=== PATIENT | female | born 1970 | race Caucasian/White ===

== ENCOUNTER → 2017-05-17 | Outpatient (CLI) | payer BC ==
--- NOTE | 2017-05-18 11:47 | MAM ---
EXAM DESCRIPTION: 3D Screening BILATERAL : Digital Mammography. CLINICAL HISTORY: 47 years Female SCREENING . No complaints. Mother with breast cancer. Premenopausal. No HRT. COMPARISON: 2-D digital screening bilateral study 04/15/2013. No prior reports available. TECHNIQUE: Bilateral CC and MLO projection full-field images, 3-D tomosynthesis digital mammographic technique. Also bilateral synthesized CC/ MLO full-field images. CAD not utilized. FINDINGS: The breast parenchymal density pattern is: Scattered areas of fibroglandular density. No skin thickening or nipple retraction bilateral solitary microcalcifications. Bilateral axillary lymph nodes. Intramammary posterior lymph node left breast. No focal, stellate mass or density, focal asymmetry , and no suspicious microcalcifications bilaterally. Stable mammograms compared to prior study, taking into account differences in mammographic technique IMPRESSION: BI-RADS CATEGORY: 2 - BENIGN FINDINGS. FOLLOW UP: Routine digital bilateral screening, one year interval from April 2017. Written communication explaining the IMPRESSION and follow-up, will be mailed to the patient and referring health care provider. According to the [employer], yearly mammograms are recommended starting at age 40 and continuing as long as a woman is in good health. Any breast change noted on a breast self-exam should be reported promptly to the patient's healthcare provider. Breast MRI is recommended for women with an approximately 20-25% or greater lifetime risk of breast cancer, including women with a strong family history of breast or ovarian cancer and women who have been treated for Hodgkin's disease. A negative mammographic report should not delay tissue diagnosis in patients with significant clinical history or physical findings. Extremely dense breast tissue limits the sensitivity of digital mammography. Electronically signed by: Leon Fontenot MD 05/18/2017 11:46 AM [facility]
== END ==
LOC: MAMMO 08:26
PROVIDERS: ATTEND Family Medicine
DX: Z12.31 Encounter for screening mammogram for malignant neoplasm of breast (principal)
CPT/HCPCS: 77063; G0202

== ENCOUNTER → 2018-04-18 | Outpatient (CLI) | payer BC, OTHER ==
--- NOTE | 2018-04-18 12:35 | CT ---
EXAM DESCRIPTION: Chest w/Contrast : Computed Tomography. CLINICAL HISTORY: CHEST PAIN COMPARISON: Chest radiograph 07/10/2017. TECHNIQUE: Spiral-axial scans at 5 x 5 mm intervals through the lungs and thorax with IV contrast. 2.5 x 5 mm lung algorithm axial reconstructions. Coronal and sagittal 2.0 Mm reconstructions. No adverse reactions. Total Exam DLP: 394.76 mGy-cm. This exam was performed according to our departmental dose-optimization program which includes automated exposure control, adjustment of the mA and/or kV according to patient size and/or use of iterative reconstruction technique; to reduce radiation dose to as low as reasonably achievable (ALARA). Pulmonary nodule measurements under 10 mm are given as mean value of 3 axes diameters. FINDINGS: Lungs and airways: Bilaterally, small subpleural densities less than 4 mm in diameter are seen. No abnormal nodules infiltrates. No masses. Lungs are well-inflated. Pleural spaces: No significant pleural thickening, no pleural effusion or pneumothorax. Mediastinum and Anne-Marie: No significant findings. Prominent anterior, right lateral epicardial fat pad abutting the base of the right middle lobe. Great vessels and Heart: Unremarkable. Soft tissues of neck base, axillae, and chest wall: Right lobe of thyroid gland is larger than the left. Inferior posterior nonenhancing nodule at the level of the isthmus measuring 1 sq cm. Less likely to represent a parathyroid mass. Upper poles are not completely visualized. Focal asymmetry inferior to the right nipple in the right breast also seen on digital mammograms and stable since March 2013. Upper abdomen: Included peritoneal cavity unremarkable. Included spleen normal size and density. Minimal enlargement of the left adrenal gland, 1.5 x 1.5 cm with Hounsfield density +36.1. Right adrenal gland is unremarkable. Gallbladder and pancreas partially visualized. Osseous structures: Minimal spondylosis upper thoracic spine. Other osseous structures are unremarkable. IMPRESSION: 1. Bilateral lung granados are clear with no abnormal nodules masses or infiltrates. No pleural effusion or pneumothorax bilaterally. Small subclinical nodules and densities bilaterally. [facility] Best Practice recommendations is no CT follow-up is recommended. Please see below 2017 Fleischner Society guidelines for imaging follow-up of pulmonary nodules.* 2. No thyroid or parathyroid imaging follow-up recommended unless patient symptomatic. 3. Questionable mass in the left adrenal gland. If adrenal gland pathology is suspected, consider triple phase CT adrenal non-contrast and contrast washout protocol scan. 2017 Fleischner Society Recommendations for Single Solid Lung Nodule Follow-Up based on size (average of long- and short-axis diameters) <6 mm Low-Risk Patient: No routine follow-up Electronically signed by: Leon Fontenot MD 04/18/2018 12:34 PM CDT
== END ==
LOC: CT 08:35
PROVIDERS: ATTEND Family Medicine
DX: R07.2 Precordial pain (principal)

== ENCOUNTER → 2019-04-15 | Outpatient (CLI) | payer BC ==
--- NOTE | 2019-04-16 20:03 | MAM ---
EXAM DESCRIPTION: 3D Screening BILATERAL : Digital Mammography. CLINICAL HISTORY: 49 years Female ANNUAL SCREENING . No complaints. No personal history of breast cancer. Mother with breast cancer at age 50. Menarche age 11. Childbirth. Postmenopausal less than 2 years. No HRT. Lifetime risk of developing breast cancer (Tyrer-Cuzick model)(%): 16.8. COMPARISON: Bilateral screening digital breast tomosynthesis 20 April 2017.. TECHNIQUE: Bilateral CC and MLO projection full-field images, digital tomosynthesis mammographic technique. Bilateral digital 2-D full-field MLO images. CAD not available for tomosynthesis or 2-D images. FINDINGS: The breast parenchymal density pattern is: Almost entirely fatty. No skin thickening or nipple retraction. Bilateral solitary microcalcifications. Bilateral axillary lymph nodes. Focal asymmetry of fibroglandular tissues in the right nipple has decreased in size since the prior study. Bilateral fibroglandular tissues are decreasing since the prior study with increasing fatty replacement. No new focal, stellate mass or density, focal asymmetry , and no suspicious microcalcifications bilaterally. IMPRESSION: Benign exam. BIRAD CATEGORY: 2 BENIGN FINDINGS. RECOMMENDATIONS: FOLLOW UP: Routine digital bilateral mammographic screening, one year interval from March 2019. Written communication explaining the IMPRESSION and follow-up, will be mailed to the patient and referring health care provider. According to the [employer], yearly mammograms are recommended starting at age 40 and continuing as long as a woman is in good health. Any breast change noted on a breast self-exam should be reported promptly to the patient's healthcare provider. Breast MRI is recommended for women with an approximately 20-25% or greater lifetime risk of breast cancer, including women with a strong family history of breast or ovarian cancer and women who have been treated for Hodgkin's disease. A negative mammographic report should not delay tissue diagnosis in patients with significant clinical history or physical findings. Extremely dense breast tissue limits the sensitivity of digital mammography. Electronically signed by: Leon Fontenot MD 04/16/2019 8:02 PM CDT
== END ==
LOC: MAMMO 08:21
PROVIDERS: ATTEND Family Medicine
DX: Z12.31 Encounter for screening mammogram for malignant neoplasm of breast (principal)

== ENCOUNTER → 2019-10-22 | Outpatient (CLI) | payer BC ==
--- NOTE | 2019-10-22 09:47 | RAD ---
EXAM DESCRIPTION: Barium Swallow: Rad-Fluoroscopy. CLINICAL HISTORY: DYSPHAGIA COMPARISON: None TECHNIQUE: Fluoroscopy performed by Dr. Fontenot The patient swallowed barium pill with water. The patient swallowed gas-producing granules, water, and heavy density barium under fluoroscopic visualization. The images were obtained with the patient upright and horizontal. Patient drank medium density barium through a straw in the semi-prone position. 72 fluoroscopic cine loop images. 8 single fluoroscopic images. Total fluoroscopy time was 2.4 minutes. DAP: 11.6 Gy-cm2.. FINDINGS: The swallowing mechanism is unremarkable. No laryngeal penetration or aspiration. Normal caliber of the esophagus with no intrinsic or extrinsic mass lesions. Minimal secondary contractions in the distal esophagus with patient supine. Small sliding hiatal hernia. Grade 1 gastroesophageal reflux. Stomach well-distended with gas and contrast material. Also duodenal bulb. No gastroduodenal obstruction. No intrinsic lesions or mass effect. IMPRESSION: Minimal gastroesophageal reflux and sliding hiatal hernia. No mass effect on the esophagus or intrinsic lesions. Swallowing mechanism unremarkable. Electronically signed by: Leon Fontenot MD 10/22/2019 9:45 AM CDT
== END ==
LOC: RAD 07:55
PROVIDERS: ATTEND Internal Medicine Gastroenterology
DX: R13.10 Dysphagia, unspecified (principal); K21.9 Gastro-esophageal reflux disease without esophagitis; K44.9 Diaphragmatic hernia without obstruction or gangrene